=== PATIENT | male | born 1965 | race Caucasian/White ===

== ENCOUNTER 2020-11-03 05:37 | Inpatient (IN) ==
[2020-11-03] MEDS ORDERED: NS 0.9% 1000 ml BAG 1,000 ML IV ONE (06:13)
[2020-11-03] MEDS ORDERED: Morphine 4 MG/ML VIAL (1 ml) IV PRN (07:32)
[2020-11-03] MEDS ORDERED: Prochlorperazine 5 mg/ml 2 ml VIAL (10 mg) IV PRN (07:34)
[2020-11-03 08:28] LABS: ABS Lymphocytes 1.7 10^3/ul (1.0-4.8); ABS Monocytes 1.2 10^3/ul (0-0.8); ABS Neutrophils 13.9 10^3/ul (1.5-7.7); Eosinophil % 0.1 %; Hematocrit 40 % (42-52); Hemoglobin 13.8 g/dL (14.0-18.0); Mean Corpuscular HGB Conc 34 g/dL (31-36); Mean Corpuscular Hemoglobin 33 pg (27-31); Mean Corpuscular Volume 95 fL (80-94); Mean Platelet Volume 7.7 fL (7.4-10.4); Platelet Count 260 10^3/uL (150-450); Red Blood Count 4.24 10^6 /uL (4.18-5.48); Red Cell Distribution Width 12 % (10-15); White Blood Count 16.9 10^3/uL (3.5-10.8)
[2020-11-03 08:40] LABS: Albumin 3.5 g/dL (3.2-5.2); Albumin/Globulin Ratio 1.5 (1-3); C Reactive Protein 86.43 mg/L (<8.01); Calcium 8.1 mg/dL (8.6-10.3); EGFR African American 112.6 (>60); Globulin 2.3 g/dL (2-4); Potassium 3.9 mmol/L (3.5-5.0); Total Bilirubin 0.5 mg/dL (0.2-1.0); Total Protein 5.8 g/dL (6.4-8.9)
[2020-11-03] MEDS: NS 0.9% 1000 ml BAG 1,000 ML IV SCH ×2 (10:10→15:40)
[2020-11-03] MEDS ORDERED: ED ONCE IV ONE (10:15)
[2020-11-03] MEDS ORDERED: LEVOFLOXACIN 500 MG IV ONE (10:15)
[2020-11-03] MEDS ORDERED: metroNIDAZOLE IV 500 MG/100ML - ED ONCE IVPB ONE (11:00)
[2020-11-03] MEDS: cefTRIAXone 1 gm/50 mL NS BAG 1 GM/50 ML BAG IVPB SCH (21:05)
[2020-11-04] MEDS: NS 0.9% 1000 ml BAG 1,000 ML IV SCH ×2 (02:24→18:16)
[2020-11-04 08:24] LABS: ABS Lymphocytes 1.5 10^3/ul (1.0-4.8); ABS Neutrophils 8.2 10^3/ul (1.5-7.7); Eosinophil % 0.2 %; Hematocrit 42 % (42-52); Hemoglobin 14.4 g/dL (14.0-18.0); Lymphocyte % 13.8 %; Mean Corpuscular HGB Conc 35 g/dL (31-36); Mean Corpuscular Hemoglobin 33 pg (27-31); Mean Corpuscular Volume 95 fL (80-94); Mean Platelet Volume 7.7 fL (7.4-10.4); Platelet Count 268 10^3/uL (150-450); Red Blood Count 4.37 10^6 /uL (4.18-5.48); Red Cell Distribution Width 12 % (10-15); White Blood Count 10.8 10^3/uL (3.5-10.8)
[2020-11-04 08:39] LABS: Calcium 8.1 mg/dL (8.6-10.3); EGFR African American 118.9 (>60); EGFR Non-African American 98.3 (>60); Magnesium 1.7 mg/dL (1.9-2.7); Potassium 3.6 mmol/L (3.5-5.0)
[2020-11-04] MEDS ORDERED: Levofloxacin 500 MG IVPREMIX 500 MG/100 ML BAG IVPB SCH (10:00)
[2020-11-04] MEDS ORDERED: Magnesium Sulfate 2 gm BAG 2 GM/50 ML BAG IVPB ONE (10:34)
[2020-11-04] MEDS: metroNIDAZOLE IV 500 MG/100ML 500 MG/100 ML BAG IVPB SCH ×2 (10:56→22:47)
[2020-11-04 12:15] LABS: INR 1.49 (0.82-1.09)
[2020-11-04] MEDS ORDERED: fentaNYL 100 mcg/2 ml 50 MCG/ML VIAL ONE (13:41)
[2020-11-04] MEDS: cefTRIAXone 1 gm/50 mL NS BAG 1 GM/50 ML BAG IVPB SCH (20:44)
[2020-11-05] MEDS: NS 0.9% 1000 ml BAG 1,000 ML IV SCH ×2 (06:05→17:46)
[2020-11-05 09:07] LABS: ABS Eosinophils 0.1 10^3/ul (0-0.6); ABS Monocytes 0.8 10^3/ul (0-0.8); ABS Neutrophils 4.4 10^3/ul (1.5-7.7); Hematocrit 39 % (42-52); Hemoglobin 13.8 g/dL (14.0-18.0); Lymphocyte % 26.9 %; Mean Corpuscular HGB Conc 35 g/dL (31-36); Mean Corpuscular Hemoglobin 33 pg (27-31); Mean Corpuscular Volume 94 fL (80-94); Mean Platelet Volume 7.3 fL (7.4-10.4); Platelet Count 270 10^3/uL (150-450); Red Blood Count 4.18 10^6 /uL (4.18-5.48); Red Cell Distribution Width 13 % (10-15); White Blood Count 7.4 10^3/uL (3.5-10.8)
[2020-11-05 09:27] LABS: C Reactive Protein 131.17 mg/L (<8.01); Calcium 8.4 mg/dL (8.6-10.3); EGFR Non-African American 104.1 (>60); Magnesium 2.1 mg/dL (1.9-2.7); Potassium 3.6 mmol/L (3.5-5.0)
[2020-11-05] MEDS: metroNIDAZOLE IV 500 MG/100ML 500 MG/100 ML BAG IVPB SCH ×2 (10:54→23:08)
[2020-11-05] MEDS: cefTRIAXone 1 gm/50 mL NS BAG 1 GM/50 ML BAG IVPB SCH (19:28)
[2020-11-06] MEDS: NS 0.9% 1000 ml BAG 1,000 ML IV SCH (05:11)
[2020-11-06] MEDS ORDERED: Morphine ORAL CONCENTRATE 5 MG/0.25 ML ORAL.SYRIN PO PRN (08:34)
[2020-11-06] MEDS: metroNIDAZOLE IV 500 MG/100ML 500 MG/100 ML BAG IVPB SCH (10:40)
[2020-11-06 11:17] VITALS: BP 126/80
== END 2020-11-06 12:37 | disposition home or self-care (01) | DRG 710 ==
LOC: ED 05:37 → SSU 13:33
PROVIDERS: ADMIT Hospitalist; ATTEND Internal Medicine

== ENCOUNTER 2021-01-20 06:04 | Inpatient (IN) ==
[~2021-01-20 06:04] MED LIST: Buffered Lidocaine 1% SYRIN 1 ml INTRADERM ONE; Clindamycin 900 MG/D5W BAG 900 MG/50 ML BAG IVPB ONE; Gentamicin ADULT 365 MG in NS 0.9% 100 ml BAG 100 ML IVPB SCH; Heparin 5000 UNITS/ML 1 mL VIAL ONE; Lactated Ringers 1000 ml BAG 1,000 ML IV SCH
[2021-01-20] MEDS ORDERED: Lidocaine 2% PF 5 ML VIAL ONE (06:52)
[2021-01-20] MEDS ORDERED: Ondansetron 4 mg VIAL 2 MG/ML 2 ml VIAL ONE (06:52)
[2021-01-20] MEDS ORDERED: fentaNYL 250 mcg/5 ml 50 MCG/ML 5 ml VIAL (250 MCG) ONE (06:52)
[2021-01-20] MEDS ORDERED: Rocuronium 50 mg VIAL 10 mg/ml 5 ml VIAL (50 mg) ONE (06:52)
[2021-01-20] MEDS ORDERED: Dexamethasone IV 4 MG/ML VIAL 1 ml VIAL ONE (06:52)
[2021-01-20] MEDS ORDERED: Midazolam 2 mg/2 ml VIAL 1 mg/ml 2 ml VIAL (2 mg) ONE (06:52)
[2021-01-20] MEDS ORDERED: Naloxone 0.4 mg VIAL 0.4 mg/ml 1 ml VIAL IV PRN (10:15)
[2021-01-20] MEDS ORDERED: Ondansetron 4 mg VIAL 2 MG/ML 2 ml VIAL IV PRN ×2 (10:15→15:05)
[2021-01-20] MEDS ORDERED: HYDROmorphone 1 MG/1 ML SYRINGE IV PRN (10:15)
[2021-01-20] MEDS ORDERED: DiMENhydriNATE IV 50 mg/ml 1 ml VIAL IV PUSH PRN (10:15)
[2021-01-20] MEDS ORDERED: Acetaminophen IV 1 GM/100ML 100 ML IV PRN (10:15)
[2021-01-20] MEDS ORDERED: fentaNYL 100 mcg/2 ml 50 MCG/ML VIAL IV PRN (10:15)
[2021-01-20] MEDS ORDERED: Clindamycin 900 MG/D5W BAG 900 MG/50 ML BAG IVPB ONE (13:29)
[2021-01-20] MEDS: Lactated Ringers 1000 ml BAG 1,000 ML IV SCH (17:20)
[2021-01-20] MEDS: HYDROmorphone 0.5 MG/0.5 ML SYRINGE IV SLOW PU PRN (19:38)
[2021-01-21] MEDS: Lactated Ringers 1000 ml BAG 1,000 ML IV SCH ×3 (01:25→17:31)
[2021-01-21] MEDS: HYDROmorphone 0.5 MG/0.5 ML SYRINGE IV SLOW PU PRN ×4 (04:04→19:37)
[2021-01-21] MEDS: Heparin 5000 UNITS/ML 1 mL VIAL SUBCUT SCH ×3 (05:24→21:26)
[2021-01-21 06:18] LABS: ABS Monocytes 0.9 10^3/ul (0-0.8); ABS Neutrophils 7.2 10^3/ul (1.5-7.7); Hematocrit 42 % (42-52); Hemoglobin 14.7 g/dL (14.0-18.0); Lymphocyte % 19.6 %; Mean Corpuscular HGB Conc 35 g/dL (31-36); Mean Corpuscular Hemoglobin 33 pg (27-31); Mean Corpuscular Volume 95 fL (80-94); Platelet Count 223 10^3/uL (150-450); Red Blood Count 4.45 10^6 /uL (4.18-5.48); Red Cell Distribution Width 15 % (10-15); White Blood Count 10.1 10^3/uL (3.5-10.8)
[2021-01-21 06:39] LABS: Calcium 8.4 mg/dL (8.6-10.3); EGFR African American 115.7 (>60); EGFR Non-African American 95.6 (>60); Phosphorus 2.8 mg/dL (2.5-5.0); Potassium 3.9 mmol/L (3.5-5.0)
[2021-01-22] MEDS: HYDROmorphone 0.5 MG/0.5 ML SYRINGE IV SLOW PU PRN ×6 (00:07→22:11)
[2021-01-22] MEDS: Lactated Ringers 1000 ml BAG 1,000 ML IV SCH ×2 (01:45→10:19)
[2021-01-22] MEDS: Heparin 5000 UNITS/ML 1 mL VIAL SUBCUT SCH ×3 (06:17→22:11)
[2021-01-23] MEDS: HYDROmorphone 0.5 MG/0.5 ML SYRINGE IV SLOW PU PRN ×3 (02:15→20:31)
[2021-01-23] MEDS: Heparin 5000 UNITS/ML 1 mL VIAL SUBCUT SCH ×3 (05:51→22:05)
[2021-01-24] MEDS: Heparin 5000 UNITS/ML 1 mL VIAL SUBCUT SCH (05:54)
[2021-01-24 07:31] VITALS: BP 120/81
== END 2021-01-24 10:50 | disposition home or self-care (01) | DRG 221 ==
LOC: EDACCT# → AA 06:04 → EDSTATUS 07:30 → SSU 17:10
PROVIDERS: ADMIT Surgery; ATTEND Surgery

== ENCOUNTER 2024-03-21 11:24 | Observation (INO) ==
[2024-03-21 11:57] LABS: ABS Eosinophils 0.1 10^3/uL (0.0-0.5); ABS Lymphocytes 3.3 10^3/uL (1.0-4.8); ABS Monocytes 0.6 10^3/uL (0.0-1.1); ABS Neutrophils 3.7 10^3/uL (1.5-7.6); ABS Nucleated RBC 0.01 10^3/ul; Eosinophil % 1.2 %; Hematocrit 44.3 % (38-53); Hemoglobin 15.4 g/dL (13.2-16.3); Lymphocyte % 42.6 %; Mean Corpuscular Hemoglobin 34.1 pg (27-33); Mean Corpuscular Hgb Conc 34.8 g/dL (31-36); Mean Platelet Volume 8.1 fL (7.5-11.2); Nucleated Red Blood Cells % 0.1 %/100WBC (0.0-0.8); Platelet Count 222 10^3/uL (150-450); Red Blood Count 4.52 10^6/uL (4.06-5.63); Red Cell Distribution Width 13.2 % (12-17); White Blood Count 7.7 10^3/uL (3.6-10.2)
[2024-03-21 12:11] LABS: High Sens Troponin Baseline < 3 pg/mL (<20)
[2024-03-21 12:23] LABS: INR 0.99 (0.85-1.14)
[2024-03-21 12:26] LABS: ALT 13 U/L (7-52); Albumin 4.1 g/dL (3.2-5.2); Albumin/Globulin Ratio 2.3 (1-3); Alkaline Phosphatase 51 U/L (35-149); Anion Gap 7 mmol/L (2-16); Blood Urea Nitrogen 21 mg/dL (6-24); CO2 Carbon Dioxide 24 mmol/L (22-32); Chloride 107 mmol/L (101-111); Creatinine, Serum 0.85 mg/dL (0.67-1.17); Globulin 1.8 g/dL (2-4); Glucose 94 mg/dL (70-100); Sodium 138 mmol/L (135-145); Total Bilirubin 0.5 mg/dL (0.2-1.0); Total Protein 5.9 g/dL (6.4-8.9); eGFR CKD-EPI 101.4 (>60)
[2024-03-21 13:28] LABS: Magnesium 1.9 mg/dL (1.9-2.7); Potassium Redraw 3.9 mmol/L (3.5-5.0)
[2024-03-21] MEDS ORDERED: Senna TAB 8.6 mg TAB PO PRN (16:54)
[2024-03-21] MEDS ORDERED: Sulfur Hexaflouride MICROSPHR 25 MG VIAL IV PRN (16:57)
[2024-03-21 17:55] LABS: HDL Cholesterol 40.9 mg/dL
[2024-03-21] MEDS: Nicotine GUM 4MG FRUIT FLAVOR PO PRN (19:12)
[2024-03-21 20:55] LABS: C Reactive Protein 3.89 mg/L (<8.01)
[2024-03-22 09:06] LABS: ABS Eosinophils 0.1 10^3/uL (0.0-0.5); ABS Lymphocytes 2.6 10^3/uL (1.0-4.8); ABS Monocytes 0.5 10^3/uL (0.0-1.1); ABS Neutrophils 3.2 10^3/uL (1.5-7.6); ABS Nucleated RBC 0.01 10^3/ul; Eosinophil % 2.2 %; Hematocrit 46.6 % (38-53); Hemoglobin 16.2 g/dL (13.2-16.3); Lymphocyte % 39.9 %; Mean Corpuscular Hemoglobin 33.7 pg (27-33); Mean Corpuscular Hgb Conc 34.8 g/dL (31-36); Mean Corpuscular Volume 96.8 fL (80-97); Mean Platelet Volume 7.9 fL (7.5-11.2); Nucleated Red Blood Cells % 0.1 %/100WBC (0.0-0.8); Platelet Count 200 10^3/uL (150-450); Red Blood Count 4.81 10^6/uL (4.06-5.63); Red Cell Distribution Width 12.9 % (12-17); White Blood Count 6.4 10^3/uL (3.6-10.2)
[2024-03-22 09:43] LABS: Calcium 8.5 mg/dL (8.6-10.3); Creatinine, Serum 0.88 mg/dL (0.67-1.17); Potassium 4.5 mmol/L (3.5-5.0); eGFR CKD-EPI 100.3 (>60)
[2024-03-22 14:55] VITALS: BP 133/90
[2024-03-25 13:18] LABS: Anaplasma phagocytophilum Negative (Negative); B. miyamotoi PCR, B Negative (Negative); Babesia divergens/MO-1 Negative (Negative); Babesia ducani Negative (Negative); Ehrlichia chaffeensis Negative (Negative); Ehrlichia ewingii/canis Negative (Negative); Ehrlichia muris eauclairensis Negative (Negative)
== END 2024-03-22 15:45 | disposition home or self-care (01) ==
LOC: ED 11:24 → EDHOLD 11:24 → MEDTELE 16:54 → SUATTDRO 16:54 → MEDTELE 18:22
PROVIDERS: ADMIT Internal Medicine; ATTEND Student in an Organized Health Care Education/Training Program